=== PATIENT | male | born 1960 | race Two or more races ===

== ENCOUNTER 2018-06-20 18:05 | Emergency (ER) | payer OTHER ==
[2018-06-20] MEDS ORDERED: DILTIAZEM HCL INJ 25 MG/5 ML VIAL ONE (18:17)
[2018-06-20] MEDS ORDERED: ASPIRIN 81 MG TABLET, CHEWABLE PO ONE (18:26)
[2018-06-20] MEDS ORDERED: DILTIAZEM HCL/D5W 125 MG/125 ML RTUINJ IV PRN (18:28)
[2018-06-20] MEDS ORDERED: DILTIAZEM HCL INJ 25 MG/5 ML VIAL IV ONE ×2 (18:28→20:04)
[2018-06-20 18:47] LABS: ABSOLUTE LYMPHOCYTES (AUTO) 1.9 10^3/uL (0.5-4.7); ABSOLUTE MONOCYTES (AUTO) 0.6 10^3/uL (0.1-1.4); ABSOLUTE NEUT (AUTO) 13.6 10^3/uL (1.7-8.2); BASOPHILS % (AUTO) 0.2 % (0-2); HEMATOCRIT 48.6 % (37.9-51.0); HEMOGLOBIN 16.5 g/dL (13.5-17.0); LYMPHOCYTES % (AUTO) 11.5 % (13-45); MEAN CORPUSCULAR HEMOGLOBIN 28.2 pg (27.0-33.4); MEAN CORPUSCULAR VOLUME 83 fl (80-97); MONOCYTES % (AUTO) 3.7 % (3-13); RED BLOOD COUNT 5.86 10^6/uL (4.35-5.55); RED CELL DISTRIBUTION WIDTH 14.5 % (11.5-14.0); SEGMENTED NEUTROPHILS % (AUTO) 84.6 % (42-78); TOTAL CELLS COUNTED % (AUTO) 100 %; WHITE BLOOD COUNT 16.1 10^3/uL (4.0-10.5)
[2018-06-20 18:48] LABS: INTERNATIONAL RATION (INR) 0.89; PROTHROMBIN TIME 12.5 SEC (11.4-15.4)
--- NOTE | 2018-06-20 18:55 | RADIOLOGY REPORT (SQ) ---
EXAM DESCRIPTION: CHEST SINGLE VIEW COMPLETED DATE/TIME: 06/20/2018 6:44 pm REASON FOR STUDY: sob COMPARISON: None. EXAM PARAMETERS: NUMBER OF VIEWS: One view. TECHNIQUE: Single frontal radiographic view of the chest acquired. RADIATION DOSE: NA LIMITATIONS: None. FINDINGS: LUNGS AND PLEURA: No pneumothorax. No consolidation or pleural effusion. MEDIASTINUM AND HILAR STRUCTURES: No masses. Contour normal. HEART AND VASCULAR STRUCTURES: Mild cardiac enlargement. BONES: No acute findings. HARDWARE: Cardiac defibrillator. OTHER: No other significant finding. IMPRESSION: No consolidation or pleural effusion.Mild cardiac enlargement. TECHNICAL DOCUMENTATION: JOB ID: [id number] [id number] 2010 [employer]- All Rights Reserved Reading location - IP/workstation name: [email or web address]
[2018-06-20 18:57] LABS: ALANINE AMINOTRANSFERASE 93 U/L (21-72); ALBUMIN 4.3 g/dL (3.5-5.0); ALKALINE PHOSPHATASE 82 U/L (38-126); ANION GAP 12 (5-19); ASPARTATE AMINO TRANSFERASE 77 U/L (17-59); BILIRUBIN,DIRECT 0.4 mg/dL (0.0-0.4); BILIRUBIN,TOTAL 0.9 mg/dL (0.2-1.3); BLOOD UREA NITROGEN 20 mg/dL (7-20); CALCIUM 9.4 mg/dL (8.4-10.2); CARBON DIOXIDE 27 mmol/L (22-30); CHLORIDE 106 mmol/L (98-107); CREATINE KINASE 357 U/L (55-170); GLUCOSE 121 mg/dL (75-110); LIPASE 120.6 U/L (23-300); POTASSIUM 4.8 mmol/L (3.6-5.0); SODIUM 144.8 mmol/L (137-145); TOTAL PROTEIN 7.1 g/dL (6.3-8.2)
[2018-06-20 19:09] LABS: CREATINE KINASE MB 9.9 ng/mL (<4.55)
[2018-06-20 19:11] LABS: TROPONIN I 0.05 ng/mL
[2018-06-20 19:14] LABS: FREE T4 (FREE THYROXINE) 0.88 ng/dL (0.78-2.19)
[2018-06-20] MEDS ORDERED: ENOXAPARIN SODIUM INJ 150 MG/1 ML DISP.SYRIN SUBCUT SCH ×2 (19:15→22:00)
[2018-06-20 19:20] LABS: PLATELET COUNT 80 10^3/uL (150-450)
[2018-06-20 19:28] LABS: THYROID STIMULATING HORMONE 0.21 uIU/mL (0.47-4.68)
[2018-06-20 20:36] LABS: APPEARANCE,URINE CLEAR; BILIRUBIN,URINE NEGATIVE (NEGATIVE); COLOR,URINE COLORLESS; GLUCOSE, URINE NEGATIVE (NEGATIVE); KETONES,URINE NEGATIVE (NEGATIVE); LEUKOCYTE ESTERASE,URINE NEGATIVE (NEGATIVE); NITRITE,URINE NEGATIVE (NEGATIVE); PROTEIN,URINE NEGATIVE (NEGATIVE); URINE SPECIFIC GRAVITY 1.004; UROBILINOGEN,URINE NEGATIVE mg/dL (<2.0)
[2018-06-20] MEDS ORDERED: METOPROLOL TARTRATE PF/INJ 5 MG/5 ML SDV IV ONE (20:37)
[2018-06-20 20:51] LABS: URINE AMPHETAMINES SCREEN NEGATIVE; URINE BARBITURATES SCREEN NEGATIVE; URINE BENZODIAZEPINES SCREEN NEGATIVE; URINE COCAINE SCREEN NEGATIVE; URINE MARIJUANA (THC) SCREEN NEGATIVE; URINE METHADONE SCREEN NEGATIVE; URINE PHENCYCLIDINE SCREEN NEGATIVE
--- NOTE | 2018-06-20 21:54 | PDOC CONSULTATION ---
Consultation Consult Date: 06/20/18 Attending physician:: QUIQUE BAE Consult reason:: Chest pain History of Present Illness Admission Date/PCP: 06/20/2018 History of Present Illness: MELVA RAMIREZ is a 57 year old male with medical history significant for a massive myocardial infarction in 2013 which led to cardiac arrest, patient underwent hypothermia protocol. Cardiac catheterization did not show any arterial occlusion and was unclear the origin of his IL, ICD and pacemaker were placed. 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 prednisone for a skin rash. Since his massive IL patient has been doing well, exercising until 2 days ago that he has an episode of shortness of breath associated with chest tightness in the left area, yesterday it did resolve spontaneously but today he had a new episode while coming from a walking with his fiance taking a shower and walking to the bathroom, this time the episode had severe shortness of breath with chest tightness up to 10/10 associated with palpitation, left upper extremity cold sensation and dizziness, denies diaphoresis, nausea, vomiting, fever, chills, lower extremities edema, orthopnea. Patient is not sure if he had any stress test after his IL episode. In the emergency department EKG shows rapid atrial fibrillation with a ventricular rate in the 150s, 25 mg, 25 mg and 35 mg IV of Cardizem given unsuccessfully, patient was a started on Cardizem infusion. First set of troponin 0 0.05. By the time I went to evaluate the patient his heart rate was in between 120- 140s, 5 mg of IV metoprolol given his heart rate improved to 80-100s. He still complains of mild chest tightness. Chemistry Instructor is Dr. Wu in [facility] Ro[employer]ic Dr. Shanna Lopes in [facility] Past Medical History Cardiac Medical History: Reports: Myocardial Infarction, Other - Cardiac arrest with hypothermia protocol Hematology: Reports: Other - ITP not on medications Past Surgical History Past Surgical History: Reports: Cardiac Catheterization, Pacemaker Social History Information Source: Patient Smoking Status: Never Smoker Frequency of Alcohol Use: None Hx Recreational Drug Use: No Hx Prescription Drug Abuse: No Family History Family History: Mother 80 years old alive, history of diabetes mellitus and osteoarthritis. Father alive on his 80s, with a history of CVA. One brother disease with Hodgkin lymphoma. One sister with history of a skin cancer Parental Family History Reviewed: Yes - As above Children Family History Reviewed: NA Sibling(s) Family History Reviewed.: NA Medication/Allergy Allergies/Adverse Reactions: Penicillins Allergy (Verified 06/20/18 18:27) Review of Systems Review of Systems: As outlined in the HPI, others negative Physical Exam Vital Signs: Temp Pulse Resp BP Pulse Ox 98.8 F 17 110/56 L 95 06/20/18 18:46 06/20/18 21:01 06/20/18 21:01 06/20/18 21:01 Intake & Output 06/19/18 06/20/18 06/21/18 07:59 06:59 06:59 Weight 128 kg Additional comments: General appearance: Well-developed, obese, alert and cooperative, and appears to be in no acute distress Head: Normocephalic Eyes: PEERL, EOMI, vision is grossly intact. Ears: External auditory canal and tympanic membranes clear, hearing grossly intact. Nose: No nasal discharge. Throat: Oral cavity and pharynx normal. No inflammation, swelling, exudate or lesions. Neck: Neck supple, nontender without lymphadenopathy, masses or thyromegaly. Cardiac: Normal S1 and S2. No S3, S4 or murmurs. Rhythm is irregular and tachycardic. There is no peripheral edema, cyanosis or pallor. Extremities are warm and well perfused. Capillary refill is less than 2 seconds. No carotid bruits. Lungs: Clear to auscultation and percussion without rales, rhonchi, wheezing or diminished breath sounds. Not using accessory muscles. Abdomen: Positive bowel sounds. Soft. Nondistended, nontender. No guarding or rebound. No masses. No hepatosplenomegaly Extremities: No significant deformity or joint abnormality. No edema. Peripheral pulses intact. No varicosities. Neurological: Cranial nerves II through XII grossly intact. Strength and sensation symmetric and intact throughout. Reflexes 2+ throughout. Skin: Skin with a rash in the left upper extremity also elbow area, normal texture and turgor, warm and dry. Psychiatric: The mental examination revealed the patient was oriented to person , place, and time. The patient was able to demonstrate good judgment on recent , without hallucinations, abnormal affect or abnormal behaviors. Results Laboratory Results: 06/20/18 18:19 06/20/18 18:19 06/20/18 06/20/18 06/20/18 18:19 18:19 18:19 WBC 16.1 H RBC 5.86 H Hgb 16.5 Hct 48.6 MCV 83 MCH 28.2 MCHC 34.0 RDW 14.5 H Plt Count 80 L Seg Neutrophils % 84.6 H Lymphocytes % 11.5 L Monocytes % 3.7 Eosinophils % 0.0 Basophils % 0.2 Absolute Neutrophils 13.6 H Absolute Lymphocytes 1.9 Absolute Monocytes 0.6 Absolute Eosinophils 0.0 Absolute Basophils 0.0 Sodium 144.8 Potassium 4.8 Chloride 106 Carbon Dioxide 27 Anion Gap 12 BUN 20 Creatinine 1.17 Est GFR ( Amer) > 60 Est GFR (Non-Af Amer) > 60 Glucose 121 H Calcium 9.4 Magnesium 2.0 Total Bilirubin 0.9 AST 77 H ALT 93 H Alkaline Phosphatase 82 Total Protein 7.1 Albumin 4.3 Lipase 120.6 TSH 0.21 L Free T4 0.88 Urine Color Urine Appearance Urine pH Ur Specific [place] Urine Protein Urine Glucose (UA) Urine Ketones Urine Blood Urine Nitrite Ur Leukocyte Esterase Urine WBC (Auto) 06/20/18 19:09 WBC RBC Hgb Hct MCV MCH MCHC RDW Plt Count Seg Neutrophils % Lymphocytes % Monocytes % Eosinophils % Basophils % Absolute Neutrophils Absolute Lymphocytes Absolute Monocytes Absolute Eosinophils Absolute Basophils Sodium Potassium Chloride Carbon Dioxide Anion Gap BUN Creatinine Est GFR ( Amer) Est GFR (Non-Af Amer) Glucose Calcium Magnesium Total Bilirubin AST ALT Alkaline Phosphatase Total Protein Albumin Lipase TSH Free T4 Urine Color COLORLESS Urine Appearance CLEAR Urine pH 6.0 Ur Specific [place] 1.004 Urine Protein NEGATIVE Urine Glucose (UA) NEGATIVE Urine Ketones NEGATIVE Urine Blood SMALL H Urine Nitrite NEGATIVE Ur Leukocyte Esterase NEGATIVE Urine WBC (Auto) 0 06/20/18 06/20/18 18:19 18:19 Creatine Kinase 357 H CK-MB (CK-2) 9.90 H Troponin I 0.050 EKG Comments: Atrial fibrillation with RVR, ventricular rate 841 65, anterior infarct with Q waves V1, V2 and V3, multiple PACs, few PVCs. QTc 481. Impressions: Chest X-Ray 06/20/18 18:26 IMPRESSION: No consolidation or pleural effusion.Mild cardiac enlargement. Assessment & Plan - Diagnosis (1) Rapid atrial fibrillation Is this a current diagnosis for this admission?: Yes Plan: New diagnosis of atrial fibrillation, upon arrival with rapid ventricular response. After several doses of IV Cardizem he was initiated on Cardizem infusion, as per his heart rate was still over 120s 5 mg of Lopressor given with good results, heart rate in between 80-100s, Chads Vasc 1. I suspect NSTEMI, troponin 0 0.05, CK-MB 9.9, CK 357, order second set of troponins. (2) History of IL (myocardial infarction) Is this a current diagnosis for this admission?: Yes Plan: History of massive myocardial infarction, EKG shows Q waves in V1, V2 and V3 with LVH, few PVCs, multiple PACs. He is on metoprolol at home. Chemistry Instructor Dr. Wu in [facility]. Tells me he is AICD/pacemaker is interrogated every 3 months with no major findings. (3) History of ITP Is this a current diagnosis for this admission?: Yes Plan: Patient tells me that he follows at [facility] and his last visit was few months ago with platelets in the 30 K, currently platelets are 80 K but he tells me that is secondary to the p.o. prednisone he has been taking for a skin rash. (4) Leukocytosis Is this a current diagnosis for this admission?: Yes Plan: White blood cells 16 K, likely reactive, no signs or symptoms of infection, does not need antibiotic therapy. - Time Time Spent: 50 to 70 Minutes - Plan Summary Plan Summary: I discussed the case with Dr. Elizabeth who is our copying machine mechanic engineer station mainline and due to the complexity of the case he recommended to transfer the patient where his copying machine mechanic is located, in this case [facility]. I spoke with ED attending Dr. Bae who will make arrangements for transfer.
--- NOTE | 2018-06-20 22:19 | EKG REPORT ---
SEVERITY:- ABNORMAL ECG - ATRIAL FIBRILLATION, V-RATE 84-165 ANTERIOR INFARCT, AGE INDETERMINATE BORDERLINE PROLONGED QT INTERVAL : Confirmed by: Nita Elizabeth MD 20-Jun-2018 22:19:18
--- NOTE | 2018-06-20 22:19 | EKG REPORT ---
SEVERITY:- ABNORMAL ECG - ATRIAL FIBRILLATION, V-RATE 61-99 PROBABLE LVH WITH SECONDARY REPOL ABNRM ANTERIOR Q WAVES, POSSIBLY DUE TO LVH ABNORMAL T, PROBABLE ISCHEMIA, LATERAL LEADS : Confirmed by: Nita Elizabeth MD 20-Jun-2018 22:18:53
--- NOTE | 2018-06-20 22:20 | EKG REPORT ---
SEVERITY:- ABNORMAL ECG - ATRIAL FIBRILLATION, V-RATE 115-183 ANTERIOR INFARCT, AGE INDETERMINATE ST DEPRESSION, CONSIDER ISCHEMIA, LAT LEADS BORDERLINE PROLONGED QT INTERVAL : Confirmed by: Nita Elizabeth MD 20-Jun-2018 22:19:26
--- NOTE | 2018-06-20 23:35 | ER Document Report ---
ED General - General Chief Complaint: Chest Pain Stated Complaint: CHEST PAIN Time Seen by Provider: 06/20/18 18:17 TRAVEL OUTSIDE OF THE [place] IN LAST 30 DAYS: No - HPI Patient complains to provider of: Chest pain Notes: Patient coming in for intermittent chest pain ongoing for the last 24 hours. Patient in triage area was found to be extremely tachycardic with a EKG showing A. fib with RVR. Patient was brought back to our trauma room #2. Patient was speaking complete sentences otherwise feeling well denies any chest pain at this time. Patient states has a history of an NC in the past many years ago unknown exact date. Patient states during that time catheterization was clear and patient had the AICD placed. Patient denies any firing of his AICD. Patient states the reason is displaced because of unknown reason for his NC. Later further information patient had a cardiac arrest with a clean cardiac cath. Patient otherwise states compliant with his medication. Patient denies any fevers chills nausea vomiting diarrhea denies any recent travel denies any shortness of breath at this time. Patient denies any palpitations. Denies any drug use denies any smoking. Patient otherwise resting company upon my evaluation with a heart rate balance between 150-170. Patient does state that he is on new medication steroid prednisone because of a contact dermatitis he received from touching sumac. Patient also states history of ITP days monitor for patient states clinic coordinator Dr. Wu at [facility] - Related Data Allergies/Adverse Reactions: Penicillins Allergy (Verified 06/20/18 18:27) Past Medical History - Social History Smoking Status: Never Smoker Chew tobacco use (# tins/day): No Frequency of alcohol use: None Drug Abuse: None Family History: Reviewed & Not Pertinent Patient has suicidal ideation: No Patient has homicidal ideation: No - Past Medical History Cardiac Medical History: Reports: Hx Heart Attack, Hx Hypertension, Other - Cardiac arrest with hypothermia protocol Renal/ Medical History: Denies: Hx Peritoneal Dialysis Past Surgical History: Reports: Hx Cardiac Catheterization, Hx Cardiac Surgery - Pacemaker ICD, Hx Pacemaker Review of Systems - Review of Systems Constitutional: No symptoms reported EENT: No symptoms reported Cardiovascular: Chest pain Respiratory: No symptoms reported Gastrointestinal: No symptoms reported Genitourinary: No symptoms reported Male Genitourinary: No symptoms reported Musculoskeletal: No symptoms reported Skin: No symptoms reported Hematologic/Lymphatic: No symptoms reported Neurological/Psychological: No symptoms reported -: Yes All other systems reviewed and negative Physical Exam - Vital signs Vitals: Pulse Ox 98 06/20/18 18:19 Interpretation: Normal - General General appearance: Appears well, Alert - HEENT Head: Normocephalic, Atraumatic Eyes: Normal Pupils: PERRL - Respiratory Respiratory status: No respiratory distress Chest status: Nontender Breath sounds: Normal Chest palpation: Normal - Cardiovascular Rhythm: Irregularly irregular, Tachycardia Heart sounds: Normal auscultation Murmur: No - Abdominal Inspection: Normal Distension: No distension Bowel sounds: Normal Tenderness: Nontender Organomegaly: No organomegaly - Back Back: Normal, Nontender - Extremities General upper extremity: Nontender, Normal color, Normal ROM, Normal temperature. No: Normal inspection - Rash on the antecubital region on the left consistent with a contact dermatitis General lower extremity: Normal inspection, Nontender, Normal color, Normal ROM , Normal temperature, Normal weight bearing. No: Barb's sign - Neurological Neuro grossly intact: Yes Cognition: Normal Orientation: AAOx4 [place] Coma Scale Eye Opening: Spontaneous [place] Coma Scale Verbal: Oriented [place] Coma Scale Motor: Obeys Commands Peggy Coma Scale Total: 15 Speech: Normal Motor strength normal: LUE, RUE, LLE, RLE Sensory: Normal - Psychological Associated symptoms: Normal affect, Normal mood - Skin Skin Temperature: Warm Skin Moisture: Dry Skin Color: Normal Course - Re-evaluation Re-evalutation: 06/20/18 23:36 Patient's heart rate improved with Cardizem rate control was obtained. Patient remained in A. fib. Patient does have a history of ITP at this time with platelets at 80. Initially referred to the hospital staff for admission however once in speaking to the clinic coordinator clinic coordinator flight surgeon Glenn through the hospitalist recommend transfer to tertiary care facility because of the history of the AICD placement and history of cardiac arrest. Patient otherwise remained chest pain-free during his visit here patient is clinic coordinator at [facility] discussed patient's case with at this time agrees with current treatment plan set the patient in transfer. Patient otherwise currently stable for transfer to tertiary care facility. - Vital Signs Vital signs: Temp Pulse Resp BP Pulse Ox 97.9 F 16 133/78 H 95 06/20/18 23:35 06/20/18 23:58 06/20/18 23:58 06/20/18 23:58 - Laboratory Result Diagrams: 06/20/18 18:19 06/20/18 18:19 Laboratory results interpreted by me: 06/20/18 06/20/18 06/20/18 18:19 18:19 18:19 WBC 16.1 H RBC 5.86 H RDW 14.5 H Plt Count 80 L Seg Neutrophils % 84.6 H Lymphocytes % 11.5 L Absolute Neutrophils 13.6 H Glucose 121 H AST 77 H ALT 93 H Creatine Kinase 357 H CK-MB (CK-2) 9.90 H TSH Urine Blood 06/20/18 06/20/18 18:19 19:09 WBC RBC RDW Plt Count Seg Neutrophils % Lymphocytes % Absolute Neutrophils Glucose AST ALT Creatine Kinase CK-MB (CK-2) TSH 0.21 L Urine Blood SMALL H Critical Care Note - Critical Care Note Total time excluding time spent on procedures (mins): 60 Comments: A. fib with RVR requiring monitoring in the drip consulting with hospital staff and transferring facility Discharge - Discharge Clinical Impression: Rapid atrial fibrillation, Leukocytosis, History of ITP, History of NC ( myocardial infarction) Condition: Good Disposition: [facility]
[2018-06-20 23:49] VITALS: BP 133/78
== END 2018-06-20 23:40 | disposition short-term general hospital (02) ==
LOC: ER 18:05
DX: I48.91 Unspecified atrial fibrillation (principal); D72.829 Elevated white blood cell count, unspecified; R07.9 Chest pain, unspecified; R00.0 Tachycardia, unspecified; I10 Essential (primary) hypertension; I25.2 Old myocardial infarction; Z95.0 Presence of cardiac pacemaker; Z88.0 Allergy status to penicillin; Z95.810 Presence of automatic (implantable) cardiac defibrillator
CPT/HCPCS: 93005; 96376; 99291; 96375; 96365; 96366; 36415; 84439; 82553; 82550; 83690; 83735; 84443; 85025; 85610; 80053; 81001; 84484; 80307; 71045; 93010; J3490 ×3